=== PATIENT | male | born 1960 | race Caucasian/White ===

== ENCOUNTER 2022-11-03 21:57 | Emergency (ER) | payer BC ==
[~2022-11-03] VITALS: Ht 182.9 cm; Wt 77.1 kg
--- NOTE | 2022-11-03 22:25 | NUR ---
ARRIVAL PT AMBULATORY TO ED S/P KICKED IN BACK OF HEAD BY HORSE. LAC TO BACK OF HEAD DENIES LOC, ALERT ORIENTED X 3. MONITORS APPLIED DR. RIVERA NOTIFIED.
--- NOTE | 2022-11-03 22:35 | NUR ---
C COLLAR C COLLAR APPLIED PER DR RIVERA VERBAL ORDER
[2022-11-03 22:39] VITALS: BP 149/76
--- NOTE | 2022-11-03 22:43 | ER.PDOC ---
General Chief Complaint: Requesting Medical Care Stated Complaint: HEAD LAC Time seen by MD: 22:10 Source: patient, family ( and son) Exam Limitations: no limitations History of Present Illness Initial Comments head injury when horse kickked him in the head, +laceration, no LOC, +dazed for few seconds, no neck pain, no other injuries Occurred: just prior to arrival Severity: moderate Location: occipital Method of Injury: direct blow Associated symptoms: Dazed Remembers: injury Allergies: Coded Allergies: No Known Allergies (Unverified , 11/03/22) Review of Systems Constitutional: denies no symptoms reported, denies see HPI, denies chills, denies diaphoresis, denies fever, denies malaise, denies weakness, denies other Eyes: denies no symptoms reported, denies see HPI, denies blindness, denies blurred vision, denies drainage, denies decreased acuity, denies foreign body sensation, denies inflammation, denies pain, denies photophobia, denies previous injury, denies shadows, denies tunnel vision, denies vision change, denies contact lenses, denies glasses, denies other Ears, Nose, Mouth, Throat: denies no symptoms reported, denies see HPI, denies ear pain, denies ear discharge, denies nose pain, denies nose discharge, denies epistaxis, denies mouth pain, denies mouth swelling, denies loose teeth, denies throat pain, denies throat swelling Musculoskeletal: see HPI Psychiatric/Neurological: see HPI All Other Systems: Reviewed and Negative Physical Exam General Appearance: Alert, No Apparent Distress, WD/WN, C-collar (on arrival at this ED) Head: Other (1cm lac is noted in upper mid occipital area, still oozing bld) Eye: PERRL, EOMI, No nystagmus ENT: Nml external inspection, Pharynx nml Neck: non-tender, painless ROM, trachea midline Cardiovascular/Respiratory: Regular Rate, Rhythm, Normal Breath Sounds, No Respiratory Distress Gastrointestinal: Normal Bowel Sounds Back: Normal Inspection, No CVA Tenderness, No Vertebral Tenderness Extremities: Normal Range of Motion, Non-Tender, Normal Inspection, No Pedal Edema, No Calf Tenderness, Normal Capillary Refill NEURO/PSYCH: Alert, Oriented x3, Cooperative, Interactive, Mood/affect nml Cranial Nerves: Normal Hearing, Normal Speech, PERRL Coordination/Gait: Normal Finger to Nose, Normal Gait Motor/Sensory: No Motor Deficit, No Sensory Deficit, No Pronator Drift, Negative Babinski's Sign Skin: Normal Color, Warm/Dry [place] Coma Score Best Eye Response: (4) Open Spontaneously Best Verbal Response: (5) Oriented Best Motor Response: (6) Obeys Commands ED LACERATION WOUND REPAIR # of Wounds/Lacerations Presen: 1 Wound Length (cm): 2 Wound cleaned: betadine Wound's Depth, Shape: linear Wound Explored: no foreign body removed Wound Repaired With: nito Number of Sutures: 2 Results/Orders Results/Orders Orders - KARRI RIVERA MD Ct Head Wo Contrast (11/03/22 22:37) Ct Cervical Spine (11/03/22 22:37) Lidocaine Hcl (Lidocaine 1% Vial) (11/03/22 22:58) Vital Signs Date Time Temp Pulse Resp B/P (MAP) Pulse Ox O2 Delivery O2 Flow Rate FiO2 11/03/22 22:39 98.3 69 20 149/76 (100) 98 Room Air* 0 21 11/03/22 22:39 98.3 69 20 98 11/03/22 22:39 98.3 69 20 Progress Progress ddx: concussion, fx, intracranial inj, c spine inj Thus, will do CT head and c spine c-spine was examined after fx was ruled out w ct ER DEPART Departure Time of Disposition: 23:32 Disposition: 01 HOME / SELF CARE / HOMELESS Impression: Primary Impression: Concussion Additional Impression: Occipital scalp laceration Condition: Improved Patient Instructions: Concussion and Brain Injury, Laceration Care, Adult, Staple Care and Removal Referrals: PCP,UNKNOWN (PCP) PRIMARY CARE PROVIDER Additional Instructions: motrin/tylenol for pain nito out in 10d f/u w pcp in 3d RTER PRN Duration or Time Spent with Pa: 30 Problem Qualifiers KARRI RIVERA MD Nov 03, 2022 22:43
[2022-11-03] MEDS ORDERED: LIDOCAINE 1% VIAL ONE (22:58)
--- NOTE | 2022-11-03 23:04 | DIREP ---
PROCEDURE:CT HEAD OR BRAIN W/O CONTRAST COMPARISON:None. INDICATIONS:KICKED IN HEAD BY HORSE TECHNIQUE:CT images were created without intravenous contrast. FINDINGS: VENTRICLES: Unremarkable ventricular size and morphology for the patient's age. CEREBRUM: No apparent mass or mass effect. No acute intracranial hemorrhage or abnormal extra-axial fluid collections. No CT evidence to suggest acute large vascular territorial ischemia. CEREBELLUM: Unremarkable for the patient's age. BRAINSTEM: Normal. SKULL: Normal. SINUSES: No significant paranasal sinus disease CONCLUSION:No acute intracranial abnormality. Dictated by: Marshall Avitia M.D. on 11/03/2022 at 10:59 PM
--- NOTE | 2022-11-03 23:09 | DIREP ---
PROCEDURE: CT SPINE CERVICAL W/O COMPARISON:None. INDICATIONS:TRAUMA TO HEAD FINDINGS: ALIGNMENT:Straightening of the normal cervical lordosis. Vertebral body alignment is maintained. Facet joints are intact. VERTEBRAE:No compression deformity or acute fracture is identified. PARASPINAL AREA:No suspicious abnormality of the imaged paravertebral soft tissues. CERVICAL DISC LEVELS Postoperative changes of the cervical spine with previous anterior cervical discectomy and fusion extending from C4-C7. Associated intervertebral body fusion noted. Moderate degenerative disc disease at C3-C4, above the fused segment. Mild degenerative disc disease at C7-T1. Additional degenerative changes are noted about the dens and anterior arch of C1. Relatively mild facet arthropathy. No definite spinal stenosis. Moderate bilateral neural foraminal encroachment at C6-C7. CONCLUSION: 1. No acute osseous abnormality or vertebral body malalignment. 2. Postoperative and degenerative changes of the cervical spine as discussed above. No definite spinal stenosis. Moderate bilateral neural foraminal encroachment at C6-C7. Dictated by: Marshall Avitia M.D. On 11/03/2022 at 11:03 PM
== END 2022-11-03 23:40 | disposition home or self-care (01) ==
LOC: ER 21:57
DX: S01.01XA Laceration without foreign body of scalp, initial encounter (principal); S06.0XAA Concussion with loss of consciousness status unknown, initial encounter; X58.XXXA Exposure to other specified factors, initial encounter; Y93.89 Activity, other specified; Y92.89 Other specified places as the place of occurrence of the external cause; Y99.8 Other external cause status
CPT/HCPCS: 99285; 70450; 72125; 12001; J2001